=== PATIENT | male | born 1955 | race Caucasian/White ===

== ENCOUNTER → 2016-05-19 | Day surgery (SDC) | payer OTHER, BC ==
[~2016-05-19] MED LIST: PROPOFOL 20 ML ONE
[2016-05-19 07:58] VITALS: BMI 31.5
[2016-05-19 09:10] VITALS: TEMP 98.3
[2016-05-19 11:14] VITALS: BP 131/88; PULSE 64
--- NOTE | 2016-05-20 12:47 | PATH ---
Surgical Pathology Report Patient Name: DANIEL RODRIGUEZ [facility]. Rec. #: [id number] /Age/Gender: 1955 (Age: 60) / M Account: [id number] Location: U-ENDOSCOPY Taken: 05/19/2016 Received: 05/19/2016 Reported: 05/20/2016 Physicians: Koffi Yoon M.D. Specimen(s) Received A: BX STOMACH B: BX DISTAL ESOPHAGUS C: BX POLYP SIGMOID COLON D: POLYP DESCENDING COLON POLYP Clinical History GERD Gastritis, hiatal hernia, colon polyps, diverticulosis, hemorrhoids Final Diagnosis A. STOMACH, BIOPSY: GASTRIC OXYNTIC MUCOSA WITH MODERATE CHRONIC GASTRITIS. IMMUNOSTAIN FOR H. PYLORI IS NEGATIVE FOR ORGANISMS. B. ESOPHAGUS, DISTAL, BIOPSY: SQUAMOUS EPITHELIUM WITH CHRONIC INFLAMMATION AND REFLUX TYPE CHANGES. NO COLUMNAR EPITHELIUM PRESENT (NO INTESTINAL METAPLASIA/CARPENTER'S ESOPHAGUS IDENTIFIED). C. COLON, SIGMOID, POLYP, BIOPSY: HYPERPLASTIC POLYP. D. COLON, DESCENDING, POLYP, POLYPECTOMY: FRAGMENTS OF TUBULAR ADENOMA. Electronically Signed Familia Perez M.D. Gross Description A. Received in formalin, labeled "biopsy stomach" are 3 adan, irregular portions of soft tissue ranging from 0.2-0.5 cm in greatest dimension. The specimens are submitted in toto in one cassette. B. Received in formalin, labeled "biopsy distal esophagus" is a adan, irregular portion of soft tissue measuring 0.5 cm in greatest dimension. The specimen is submitted in toto in one cassette. C. Received in formalin, labeled "biopsy polyp sigmoid colon" is a adan, irregular portion of soft tissue measuring 0.4 cm in greatest dimension. The specimen is submitted in toto in one cassette. D. Received in formalin, labeled "descending colon polyp" are 2 adan, irregular portions of soft tissue measuring 0.2 and 0.4 cm in greatest dimension. The specimens are submitted in toto in one cassette. 05/19/201605/19/2016
== END | disposition home or self-care (01) ==
LOC: JASU-ENDO 06:59
PROVIDERS: ATTEND Internal Medicine Gastroenterology
PROC: 0DBN8ZX Excision of Sigmoid Colon, Via Natural or Artificial Opening Endoscopic, Diagnostic (ICD-10-PCS; 2016-05-19)
PROC: 0DBM8ZX Excision of Descending Colon, Via Natural or Artificial Opening Endoscopic, Diagnostic (ICD-10-PCS; principal; 2016-05-19 08:00)
DX: Z12.11 Encounter for screening for malignant neoplasm of colon (principal); Z86.010 Personal history of colon polyps; Z80.0 Family history of malignant neoplasm of digestive organs; D12.5 Benign neoplasm of sigmoid colon; K57.30 Diverticulosis of large intestine without perforation or abscess without bleeding; D12.4 Benign neoplasm of descending colon; K64.8 Other hemorrhoids
CPT/HCPCS: 88305-TC; 88342-TC

== ENCOUNTER 2021-06-24 15:39 | Inpatient (IN) | payer OTHER, BC ==
[2021-06-24 18:05] LABS: BASO % 0.3 % (0-2.0); EOS % 0.4 % (0-4.5); HEMATOCRIT 39.4 % (35.4-49); HEMOGLOBIN 13.4 GM/dL (11.7-16.9); MCH 30.8 pg (25.7-33.7); MCHC 33.8 g/dl (32.0-35.9); MEAN PLT VOLUME 7.5 fl (7.5-11.1); MONO % 6.1 % (3.8-10.2); NEUT % 82.2 % (42.8-82.8); PLATELET COUNT 674 10^3/uL (134-434); RBC 4.34 M/mm3 (4.00-5.60); RDW 14.4 % (11.9-15.9); WHITE BLOOD COUNT 9.3 K/mm3 (4.0-10.0)
[2021-06-24 18:13] LABS: INR 1.2 (0.83-1.09); PROTHROMBIN TIME (PATIENT) 13.8 SEC (9.7-13.0)
[2021-06-24 18:16] LABS: ACTIVATED PTT 30.8 SECONDS (25.2-36.5)
[2021-06-24 18:50] LABS: CALCIUM 9.6 mg/dL (8.5-10.1)
[2021-06-24 18:51] LABS: ALBUMIN 3.5 g/dl (3.4-5.0); BLOOD UREA NITROGEN 12.8 mg/dL (7-18); MAGNESIUM 2.4 mg/dL (1.8-2.4)
[2021-06-24 18:54] LABS: CREATININE 0.8 mg/dL (0.55-1.3)
[2021-06-24 18:56] LABS: BILIRUBIN,TOTAL 0.6 mg/dL (0.2-1); TOT PROT 8.2 g/dl (6.4-8.2)
[2021-06-24 18:59] LABS: N-TERMINAL BNP 9.2 pg/ml (5-125)
[2021-06-24] MEDS ORDERED: metoPROLOL SUCCINATE 25 MG TAB.SR.24H (FP) PO ONE (20:58)
[2021-06-24] MEDS ORDERED: metoPROLOL SUCCINATE 25 MG TAB.SR.24H (FP) ONE (21:21)
[2021-06-25] MEDS ORDERED: ACETAMINOPHEN 325 MG TABLET (FP) PO PRN (02:35)
[2021-06-25] MEDS ORDERED: ONDANSETRON 4 MG/2 ML VIAL IVPUSH PRN (02:39)
[2021-06-25 04:50] VITALS: BMI 27.7
[2021-06-25] MEDS: LIDOCAINE 5% TOPICAL PATCH TP SCH ×2 (05:54→10:00)
[2021-06-25 07:10] LABS: HEMATOCRIT 34.4 % (35.4-49); HEMOGLOBIN 11.4 GM/dL (11.7-16.9); MCH 30.3 pg (25.7-33.7); MEAN CELL VOLUME 91.6 fl (80-96); MEAN PLT VOLUME 7.8 fl (7.5-11.1); PLATELET COUNT 640 10^3/uL (134-434); RBC 3.76 M/mm3 (4.00-5.60); RDW 13.9 % (11.9-15.9); WHITE BLOOD COUNT 8.5 K/mm3 (4.0-10.0)
[2021-06-25 07:29] LABS: CALCIUM 8.4 mg/dL (8.5-10.1)
[2021-06-25 07:30] LABS: BLOOD UREA NITROGEN 11.8 mg/dL (7-18)
[2021-06-25 07:33] LABS: CREATININE 0.7 mg/dL (0.55-1.3)
[2021-06-25 07:36] LABS: CHOLESTEROL 119 mg/dL (50-200)
[2021-06-25 07:37] LABS: LDL CHOLESTEROL (ONLY SJRH) 81 mg/dL (5-100); TRIGLYCERIDES 81 mg/dL (0-150)
[2021-06-25 07:39] LABS: HDL CHOLESTEROL 34 mg/dL (40-60)
[2021-06-25] MEDS: TAMSULOSIN HCL 0.4 MG CAP PO SCH (10:44)
[2021-06-25] MEDS: LISINOPRIL 20 MG TABLET PO SCH (10:46)
[2021-06-25] MEDS: PANTOPRAZOLE 40 MG TABLET PO SCH (10:46)
[2021-06-25] MEDS: amLODIPine BESYLATE 5 MG TABLET (FP) PO SCH (10:47)
[2021-06-25] MEDS: POLYETHYLENE GLYCOL (HEALTHYLAX) 3350 17 GM PACKET PO SCH (11:02)
[2021-06-25] MEDS: oxyCODONE HCL 5 MG TABLET PO PRN ×2 (15:31→21:35)
[2021-06-25 19:11] LABS: BF WBC & OTHER NUCLEATED CELLS 4800 /mm3
[2021-06-25] MEDS ORDERED: MELATONIN 5 MG TABLETS PO ONE (20:20)
[2021-06-25 21:26] LABS: BODY FLUID MACROPHAGES 8 %; BODYL FLD EOSINOPHIL 1 %
[2021-06-25] MEDS: LIDOCAINE PATCH REMOVAL MC SCH (21:45)
[2021-06-25] MEDS ORDERED: ATORVASTATIN CA 20 MG TABLET (FP) PO SCH (22:00)
[2021-06-26] MEDS: oxyCODONE HCL 5 MG TABLET PO PRN ×4 (03:35→21:45)
[2021-06-26 07:33] LABS: BASO % 0.7 % (0-2.0); EOS % 2.4 % (0-4.5); HEMATOCRIT 32.7 % (35.4-49); HEMOGLOBIN 11.3 GM/dL (11.7-16.9); LYMPH % 24.3 % (8-40); MCH 31.4 pg (25.7-33.7); MCHC 34.6 g/dl (32.0-35.9); MEAN CELL VOLUME 90.9 fl (80-96); MEAN PLT VOLUME 7.4 fl (7.5-11.1); MONO % 7.3 % (3.8-10.2); NEUT % 65.3 % (42.8-82.8); PLATELET COUNT 574 10^3/uL (134-434); RDW 14.3 % (11.9-15.9); WHITE BLOOD COUNT 6.9 K/mm3 (4.0-10.0)
[2021-06-26 07:42] LABS: CALCIUM 8.6 mg/dL (8.5-10.1)
[2021-06-26 07:44] LABS: BLOOD UREA NITROGEN 12.5 mg/dL (7-18)
[2021-06-26 07:47] LABS: CREATININE 0.8 mg/dL (0.55-1.3)
[2021-06-26] MEDS: LIDOCAINE 5% TOPICAL PATCH TP SCH ×2 (09:42→09:59)
[2021-06-26] MEDS: POLYETHYLENE GLYCOL (HEALTHYLAX) 3350 17 GM PACKET PO SCH ×2 (09:42→10:00)
[2021-06-26] MEDS: TAMSULOSIN HCL 0.4 MG CAP PO SCH (09:43)
[2021-06-26] MEDS: amLODIPine BESYLATE 5 MG TABLET (FP) PO SCH (09:43)
[2021-06-26] MEDS: LISINOPRIL 20 MG TABLET PO SCH (09:43)
[2021-06-26] MEDS: PANTOPRAZOLE 40 MG TABLET PO SCH (09:45)
[2021-06-26] MEDS: ATORVASTATIN CA 20 MG TABLET (FP) PO SCH (09:58)
[2021-06-26] MEDS ORDERED: metoPROLOL SUCCINATE 25 MG TAB.SR.24H (FP) PO SCH ×2 (10:00→10:20)
[2021-06-26] MEDS ORDERED: MELATONIN 5 MG TABLETS PO PRN (18:43)
[2021-06-26] MEDS: LIDOCAINE PATCH REMOVAL MC SCH (22:14)
[2021-06-27 07:38] LABS: BLOOD UREA NITROGEN 13.6 mg/dL (7-18); CALCIUM 8.6 mg/dL (8.5-10.1)
[2021-06-27 07:40] LABS: BASO % 0.7 % (0-2.0); EOS % 2.7 % (0-4.5); HEMATOCRIT 32.7 % (35.4-49); HEMOGLOBIN 10.9 GM/dL (11.7-16.9); LYMPH % 22.2 % (8-40); MCH 30.4 pg (25.7-33.7); MCHC 33.4 g/dl (32.0-35.9); MEAN PLT VOLUME 7.8 fl (7.5-11.1); MONO % 6.5 % (3.8-10.2); NEUT % 67.9 % (42.8-82.8); PLATELET COUNT 619 10^3/uL (134-434); RBC 3.59 M/mm3 (4.00-5.60); RDW 14.5 % (11.9-15.9); WHITE BLOOD COUNT 8.1 K/mm3 (4.0-10.0)
[2021-06-27 07:42] LABS: CREATININE 0.7 mg/dL (0.55-1.3)
[2021-06-27] MEDS: amLODIPine BESYLATE 5 MG TABLET (FP) PO SCH (09:05)
[2021-06-27] MEDS: oxyCODONE HCL 5 MG TABLET PO PRN (09:05)
[2021-06-27] MEDS: PANTOPRAZOLE 40 MG TABLET PO SCH (09:05)
[2021-06-27] MEDS: ATORVASTATIN CA 20 MG TABLET (FP) PO SCH (09:05)
[2021-06-27] MEDS: TAMSULOSIN HCL 0.4 MG CAP PO SCH (09:05)
[2021-06-27] MEDS: LISINOPRIL 20 MG TABLET PO SCH (09:11)
[2021-06-27] MEDS: LIDOCAINE 5% TOPICAL PATCH TP SCH (09:15)
[2021-06-27] MEDS: POLYETHYLENE GLYCOL (HEALTHYLAX) 3350 17 GM PACKET PO SCH (09:16)
[2021-06-27 13:17] VITALS: BP 104/61; PULSE 85; TEMP 98
== END 2021-06-27 14:07 | disposition home or self-care (01) | DRG 200 ==
LOC: JER 15:39 → JERBED 21:52 → J4W 06-25 03:49
PROVIDERS: ADMIT Hospitalist; ATTEND Internal Medicine
PROC: 0B9P30Z Drainage of Left Pleura with Drainage Device, Percutaneous Approach (ICD-10-PCS; principal; 2021-06-25)
PROC: 0WPB30Z Removal of Drainage Device from Left Pleural Cavity, Percutaneous Approach (ICD-10-PCS; 2021-06-27)
DX: S27.1XXA Traumatic hemothorax, initial encounter (principal); S22.42XA Multiple fractures of ribs, left side, initial encounter for closed fracture; J90 Pleural effusion, not elsewhere classified; I10 Essential (primary) hypertension; I25.10 Atherosclerotic heart disease of native coronary artery without angina pectoris; E78.00 Pure hypercholesterolemia, unspecified; E78.5 Hyperlipidemia, unspecified; R07.81 Pleurodynia; R42 Dizziness and giddiness; R06.09 Other forms of dyspnea; N40.0 Benign prostatic hyperplasia without lower urinary tract symptoms; D47.3 Essential (hemorrhagic) thrombocythemia; W19.XXXA Unspecified fall, initial encounter; Y93.9 Activity, unspecified; Y92.89 Other specified places as the place of occurrence of the external cause; Y99.9 Unspecified external cause status
CPT/HCPCS: 32557; 36415; 71045-TC-FY; 71275-TC; 74177-TC; 80048; 80053; 80061; 82042; 82150; 82945; 83036; 83615; 83735; 83880; 83986; 84157; 84443; 84478; 84484; 85025; 85027; 85610; 85730; 87070; 87075; 87102; 87116; 87205; 87206; 87210; 88108; 88305-TC; 93005; 93010; 94010; 97116-GP; 97161-GP; 99285-25; C9803-CS; Q9967; U0003; U0005

== ENCOUNTER 2021-08-07 04:55 | Day surgery (SDC) | payer OTHER, BC ==
[2021-08-06 08:39] VITALS: BMI 27.9
[2021-08-07 14:45] LABS: BF WBC & OTHER NUCLEATED CELLS 1559 /mm3
[2021-08-07 16:50] LABS: BODY FLUID MONOCYTE 2 %
[2021-08-07 17:07] VITALS: TEMP 98.4
[2021-08-07 17:08] VITALS: BP 146/81; PULSE 86
[2021-08-09 16:08] LABS: BODY FLUID ALBUMIN 2.3 g/dL (Not Estab.)
== END 2021-08-07 15:00 | disposition home or self-care (01) ==
LOC: JRADIR 04:55
PROVIDERS: ATTEND Surgery
PROC: 0W9B3ZZ Drainage of Left Pleural Cavity, Percutaneous Approach (ICD-10-PCS; principal; 2021-08-07)
PROC: BB4BZZZ Ultrasonography of Pleura (ICD-10-PCS; 2021-08-07)
DX: J90 Pleural effusion, not elsewhere classified (principal)
CPT/HCPCS: 32555; 36415; 71046-TC-FY; 76942; 82042; 82150; 82465; 82945; 83615; 83986; 84157; 84478; 87070; 87075; 87102; 87116; 87205; 87206; 87210; 88108; 88305-TC